=== PATIENT | male | born 1985 | race Caucasian/White ===

== ENCOUNTER 2017-09-30 09:19 | Emergency (ER) | payer OTHER ==
[~2017-09-30] VITALS: Ht 177.8 cm; Wt 93.4 kg
[2017-09-30 09:24] VITALS: Ht 177.8 cm; Wt 93.4 kg
[2017-09-30 11:00] VITALS: BP 138/72
== END 2017-09-30 11:00 | disposition home or self-care (01) ==
LOC: ED 09:19
DX: J06.9 Acute upper respiratory infection, unspecified (principal)
CPT/HCPCS: J7613; J7644; Q0092